=== PATIENT | female | born 1990 | race Caucasian/White ===

== ENCOUNTER 2016-08-12 12:58 | Emergency (ER) | payer BC, OTHER ==
--- NOTE | 2016-08-12 13:10 | ER Document Report ---
ED Medical Screen (RME) - General Stated Complaint: ABDOMINAL PAIN Notes: 26 yo female c/o generalized abdominal pain. woke up with RLQ pain around 0900 , pain became more intense and diffuse around 1100. no n/v. no fever. LMP . + hx/o cholelithiasis. - Related Data Allergies/Adverse Reactions: No Known Allergies Allergy (Verified 11/02/11 13:56) Past Medical History - Past Medical History Cardiac Medical History: Denies: Hx Coronary Artery Disease, Hx Heart Attack, Hx Hypertension Pulmonary Medical History: Denies: Hx Asthma, Hx Bronchitis, Hx COPD, Hx Pneumonia Neurological Medical History: Denies: Hx Cerebrovascular Accident, Hx Seizures Musculoskeltal Medical History: Denies Hx Arthritis Past Surgical History: Reports: Hx Breast Surgery - benign tumor. Denies: Hx Hysterectomy, Hx Pacemaker - Immunizations Hx Diphtheria, Pertussis, Tetanus Vaccination: Yes
[2016-08-12 13:49] LABS: ABSOLUTE BASOPHILS # (AUTO) 0.1 10^3/uL (0.0-0.2); ABSOLUTE EOSINOPHILS # (AUTO) 0.9 10^3/uL (0.0-0.6); ABSOLUTE LYMPHOCYTES (AUTO) 1.7 10^3/uL (0.5-4.7); ABSOLUTE MONOCYTES (AUTO) 0.7 10^3/uL (0.1-1.4); ABSOLUTE NEUT (AUTO) 9.4 10^3/uL (1.7-8.2); BASOPHILS % (AUTO) 0.9 % (0-2); HEMATOCRIT 41.5 % (36.0-47.0); HEMOGLOBIN 14.3 g/dL (12.0-15.5); HGB HCT DIFFERENCE 1.4; LYMPHOCYTES % (AUTO) 13.2 % (13-45); MEAN CORPUSCULAR HEMOGLOBIN 29.6 pg (27.0-33.4); MEAN CORPUSCULAR HGB CONC 34.5 g/dL (32.0-36.0); MEAN CORPUSCULAR VOLUME 86 fl (80-97); MONOCYTES % (AUTO) 5.8 % (3-13); RED BLOOD COUNT 4.83 10^6/uL (3.72-5.28); SEGMENTED NEUTROPHILS % (AUTO) 73.1 % (42-78); WHITE BLOOD COUNT 12.9 10^3/uL (4.0-10.5)
--- NOTE | 2016-08-12 13:51 | ER Document Report ---
ED General - General Chief Complaint: Abdominal Pain Stated Complaint: ABDOMINAL PAIN Time seen by provider: 13:46 Notes: This is a 26-year-old female with a history of migraine headaches that presents today with sudden onset abdominal pain. She states that she woke up at 0930 and felt sharp stabbing abdominal pain with no radiation. She states that it has progressively gotten worse throughout the day. She did eat breakfast this morning and had a normal bowel movement. Denies vomiting hematochezia nausea fever or chills chest pain. Abdominal pain is 7 out of 10 diffuse and worse with movement. She states that she has been diagnosed with gallstones in the past and H. pylori infection but does not recall when. Denies history of stomach ulcers or malignancy. Last menstrual period was July 21. Denies vaginal discharge, itch, or odor. TRAVEL OUTSIDE OF THE [place] IN LAST 30 DAYS: No - Related Data Allergies/Adverse Reactions: No Known Allergies Allergy (Verified 08/12/16 13:09) Past Medical History - General Information source: Patient - Social History Smoking Status: Never Smoker Family History: None Patient has suicidal ideation: No Patient has homicidal ideation: No - Past Medical History Cardiac Medical History: Denies: Hx Coronary Artery Disease, Hx Heart Attack, Hx Hypertension Pulmonary Medical History: Denies: Hx Asthma, Hx Bronchitis, Hx COPD, Hx Pneumonia Neurological Medical History: Denies: Hx Cerebrovascular Accident, Hx Seizures Musculoskeltal Medical History: Denies Hx Arthritis Past Surgical History: Reports: Hx Breast Surgery - benign tumor. Denies: Hx Hysterectomy, Hx Pacemaker - Immunizations Hx Diphtheria, Pertussis, Tetanus Vaccination: Yes Review of Systems - Review of Systems Constitutional: denies: Chills, Fever EENT: denies: Blurred vision Cardiovascular: denies: Chest pain Respiratory: denies: Hurts to breathe Gastrointestinal: See HPI Genitourinary: No symptoms reported Female Genitourinary: No symptoms reported, Last menstrual period - July Musculoskeletal: No symptoms reported Skin: No symptoms reported Hematologic/Lymphatic: No symptoms reported Neurological/Psychological: No symptoms reported Physical Exam - Vital signs Vitals: Temp Pulse Resp BP Pulse Ox 97.6 F 83 16 111/71 98 08/12/16 13:08 08/12/16 13:08 08/12/16 13:08 08/12/16 13:08 08/12/16 13:08 - General General appearance: Appears well In distress: None - HEENT Head: Normocephalic, Atraumatic Eyes: Normal Conjunctiva: Normal - Respiratory Respiratory status: No respiratory distress Chest status: Nontender Breath sounds: Normal. No: Rales, Rhonchi, Stridor, Wheezing - Cardiovascular Rhythm: Regular Heart sounds: Normal auscultation - Abdominal Inspection: Normal Distension: No distension Bowel sounds: Normal Tenderness: Tender - Diffuse tenderness to all quadrants to moderate palpation Organomegaly: No organomegaly - Back Back: No: CVA tenderness - Extremities General upper extremity: Normal inspection, Normal ROM, Normal strength General lower extremity: Normal inspection, Normal ROM, Normal strength - Neurological Cognition: Normal. No: Confused - Psychological Associated symptoms: Normal affect, Normal mood - Skin Skin Temperature: Warm Skin Moisture: Dry Skin Color: Normal Course - Re-evaluation Re-evalutation: 08/12/16 16:12 Patient responded well to GI cocktail. Patient stated that her pain level now is 2 out of 10. Initial encounter pain level is 7 out of 10. Vital signs are stable. She stated that she currently feels much better. Patient is afebrile. She was given multiple opportunities to ask questions. - Vital Signs Vital signs: Temp Pulse Resp BP Pulse Ox 98.0 F 66 17 99/57 L 98 08/12/16 16:40 08/12/16 16:40 08/12/16 16:40 08/12/16 16:40 08/12/16 16:40 - Laboratory Result Diagrams: 08/12/16 13:15 08/12/16 13:15 Laboratory results interpreted by me: 08/12/16 13:15 WBC 12.9 H Eosinophils % 7.0 H Absolute Neutrophils 9.4 H Absolute Eosinophils 0.9 H Discharge - Discharge Clinical Impression: Abdominal pain Qualifiers: Abdominal location: generalized Qualified Code(s): R10.84 - Generalized abdominal pain Condition: Good Disposition: HOME, SELF-CARE Additional Instructions: Return to the emergency department if symptoms worsen. Follow-up with primary care physician as soon as possible. Prescriptions: Omeprazole 20 mg PO BID #20 tablet. Ondansetron [Zofran Odt 4 mg Tablet] 1 - 2 tab PO Q4H PRN #15 tab.rapdis PRN Reason: For Nausea/Vomiting Forms: Return to Work Referrals: DAVE SANTOS, [employer] [Primary Care Provider] - Follow up as needed
[2016-08-12 14:05] LABS: APPEARANCE,URINE CLEAR; BILIRUBIN,URINE NEGATIVE (NEGATIVE); GLUCOSE, URINE NEGATIVE (NEGATIVE); KETONES,URINE NEGATIVE (NEGATIVE); LEUKOCYTE ESTERASE,URINE NEGATIVE (NEGATIVE); NITRITE,URINE NEGATIVE (NEGATIVE); PROTEIN,URINE NEGATIVE (NEGATIVE); UROBILINOGEN,URINE NEGATIVE mg/dL (<2.0)
[2016-08-12 14:15] LABS: ALANINE AMINOTRANSFERASE 22 U/L (9-52); ALBUMIN 4.3 g/dL (3.5-5.0); ALKALINE PHOSPHATASE 62 U/L (38-126); ANION GAP 13 (5-19); ASPARTATE AMINO TRANSFERASE 20 U/L (14-36); BILIRUBIN,TOTAL 0.5 mg/dL (0.2-1.3); BLOOD UREA NITROGEN 13 mg/dL (7-20); CALCIUM 9.4 mg/dL (8.4-10.2); CARBON DIOXIDE 26 mmol/L (22-30); CHLORIDE 100 mmol/L (98-107); GLUCOSE 105 mg/dL (75-110); LIPASE 81.5 U/L (23-300); POTASSIUM 4.2 mmol/L (3.6-5.0); SODIUM 139.2 mmol/L (137-145); TOTAL PROTEIN 7.4 g/dL (6.3-8.2)
[2016-08-12] MEDS ORDERED: MAG HYDROX/AL HYDROX/SIMETH SUSP 30 ML UDCUP PO ONE (14:59)
[2016-08-12] MEDS ORDERED: LIDOCAINE 2% VISCOUS SOLN 20 ML UDCUP PO ONE (15:01)
[2016-08-12] MEDS ORDERED: ONDANSETRON 4 MG TAB.RAPDIS PO ONE (15:43)
[2016-08-12 16:43] VITALS: BP 99/57
== END 2016-08-12 16:40 | disposition home or self-care (01) ==
LOC: ER 12:58
DX: K80.80 Other cholelithiasis without obstruction (principal); R10.84 Generalized abdominal pain; R10.817 Generalized abdominal tenderness; Z86.19 Personal history of other infectious and parasitic diseases
CPT/HCPCS: 99284; 36415; 83690; 84703; 85025; 80053; 81001; S0119; J3490